=== PATIENT | female | born 1965 | race Two or more races ===

== ENCOUNTER 2017-09-18 00:10 | Emergency (ER) | payer OTHER ==
--- NOTE | 2017-09-18 00:36 | PDOC ---
History of Present Illness - General Chief Complaint: Lightheaded Stated Complaint: PAIN TO BOTTOM OF FEET X 2 WEEKS/DIZZY Time Seen by Provider: 09/18/17 00:15 - History of Present Illness Initial Comments: This 52-year-old woman with a history of depression but no other medical problems presents with 3 week history of bilateral foot pain and 1 day history of vertigo, worse with positioning of her head and nausea. Patient has had one previous episode of vertigo in the past which was milder than today's episode and resolved spontaneously. No history of headache/head trauma/difficulty speaking or weakness of face or extremities. Although patient has been nauseated, she has not vomited. She states that she feels a sensation of room spinning when she turns her head to the left. Patient states that her bilateral foot pain is located mainly in the soles of her feet and is worse when she awakens in the morning. No history of trauma to her feet and no change in her footwear recently. Past History - Past Medical History Allergies/Adverse Reactions: Allergies Allergy/AdvReac Type Severity Reaction Status Date / Time No Known Allergies Allergy Verified 09/18/17 00:12 Home Medications: Ambulatory Orders Meclizine HCl [Antivert -] 25 mg PO TID PRN #20 tablet 09/18/17 Paroxetine HCl [Paxil] 20 mg PO DAILY 09/18/17 Review of Systems - Review of Systems Able to Perform ROS?: Yes Comments:: 12 point review of systems is negative except for what is noted in the history of present illness *Physical Exam - Physical Exam Comments: GENERAL: Adult female, alert and oriented 3, no acute distress HEAD: Normal with no signs of trauma. EYES: PERRLA, EOMI, several extra beats of nystagmus on right lateral gaze; remainder of eye exam is normal ENT: Ears normal, nares patent, oropharynx clear without exudates. Moist mucous membranes. NECK: Normal range of motion, supple without lymphadenopathy, JVD, or masses. LUNGS: Breath sounds equal, clear to auscultation bilaterally. No wheezes, and no crackles. HEART:Regular rate and rhythm, normal S1 and S2 without murmur, rub or gallop. ABDOMEN:.normal bowel sounds No guarding,tenderness or rebound.No masses No distention. EXTREMITIES: Normal range of motion, no edema. No clubbing or cyanosis. No erythema, or tenderness. NEUROLOGICAL: Cranial nerves II through XII grossly intact. Normal speech. No focal neurological deficits. MUSCULOSKELETAL: Back non-tender to palpation, no CVA tenderness SKIN: Warm, Dry, normal turgor, no rashes or lesions noted. Medical Decision Making - Medical Decision Making Patient presents with a one-day history of positional vertigo with nausea (no vomiting). Symptoms worsen with movement of the head to the left. Patient has had previous episodes of positional vertigo but today's is most severe. She has no other neurologic symptoms. She has not seen a neurologist or had neurologic workup of her previous episodes of vertigo. Exam reveals no evidence of focal neurologic deficit; there is mild increase in nystagmus on right lateral gaze. The patient also presents with seemingly unrelated symptoms of bilateral foot pain, worse upon awakening in the morning. No history of foot pain or other podiatric symptoms in the past. No recent change in footwear or excessive walking/running/standing. Exam of lower extremities is normal with feet warm and dry with excellent capillary refill. Dorsalis pedis pulse is palpable in both feet and motor/sensory functioning is intact. Clinical presentation most consistent with vestibular neuritis/labyrinthitis. Since patient is not actively vomiting, meclizine 25 mg dose by mouth will be given. Patient's foot pain is most consistent with Plantar fasciitis. This was discussed with her and she will follow up with aircraft shipping checker. Patient's vertigo is significantly improved after meclizine. Nausea resolved and patient ambulating without difficulty. Prescription for meclizine 25 mg 3 times a day (#20) sent to her pharmacy. She should not work tomorrow, rest and drink plenty fluids. She should take meclizine 3 times a day for the next 2 days then as needed for vertigo. Patient should return to the emergency room if she has severe, persistent vertigo or experiences persistent vomiting she should follow-up with her general doctor within the next 5 days *DC/Admit/Observation/Transfer Diagnosis at time of Disposition: Plantar fasciitis, bilateral Labyrinthitis Qualifiers: Laterality: unspecified laterality Qualified Code(s): H83.09 - Labyrinthitis, unspecified ear - Discharge Dispostion Disposition: HOME Condition at time of disposition: Stable - Prescriptions Prescriptions: Meclizine HCl [Antivert -] 25 mg PO TID PRN #20 tablet PRN Reason: Vertigo - Referrals Referrals: Michelle Morales MD [Staff Physician] - 1 week - Patient Instructions Printed Discharge Instructions: Plantar Fasciitis, Labyrinthitis Additional Instructions: no work tomorrow meclizine 25 mg three times a day for the next 2 days, then as needed for vertigo Follow-up with your general doctor within 1 week Follow-up with aircraft shipping checker regarding bilateral foot pain Return to ER if you have severe dizziness/persistent nausea,vomiting - Post Discharge Activity Forms/Work/School Notes: Back to Work
[2017-09-18 00:44] VITALS: BP 134/76; PULSE 71; TEMP 98.6; BMI 24.9
[2017-09-18] MEDS ORDERED: MECLIZINE HCL 25 MG TABLET (FP) PO ONE (00:52)
[2017-09-18] MEDS ORDERED: MECLIZINE HCL 25 MG TABLET (FP) ONE (00:55)
== END 2017-09-18 01:38 | disposition home or self-care (01) ==
LOC: FER 00:10
DX: M72.2 Plantar fascial fibromatosis (principal); H83.09 Labyrinthitis, unspecified ear
CPT/HCPCS: 99281-25

== ENCOUNTER 2022-09-18 00:01 | Emergency (ER) | payer OTHER ==
[2022-09-18 00:19] VITALS: BP 113/71; PULSE 88; RESP 18; TEMP 98.2; BMI 27.0
[2022-09-18] MEDS ORDERED: ACETAMINOPHEN 1000 MG/100 ML BAG IVPB ONE (01:34)
[2022-09-18] MEDS ORDERED: LACTATED RINGERS SOLUTION 1000 ML INFUS.BAG IV ONE (01:34)
[2022-09-18] MEDS ORDERED: METOCLOPRAMIDE HCL INJECTION 10 MG/2 ML VIAL IVPB ONE (01:34)
[2022-09-18] MEDS ORDERED: METOCLOPRAMIDE HCL INJECTION 10 MG/2 ML VIAL ONE (01:39)
[2022-09-18] MEDS ORDERED: ACETAMINOPHEN INJECTION 100 ML IVPB ONE (01:39)
[2022-09-18 02:03] LABS: BASO % 0.7 % (0-2.0); EOS % 2.2 % (0-4.5); HEMATOCRIT 38.5 % (32.4-45.2); HEMOGLOBIN 13.3 GM/dL (10.7-15.3); LYMPH % 37.3 % (8-40); MCH 29.5 pg (25.7-33.7); MCHC 34.5 g/dl (32.0-36.0); MEAN CELL VOLUME 85.6 fl (80-96); MEAN PLT VOLUME 10.1 fl (7.5-11.1); NEUT % 53.8 % (42.8-82.8); PLATELET COUNT 154 10^3/uL (134-434); RDW 13.3 % (11.6-15.6)
[2022-09-18 02:09] LABS: INR 1.06 (0.83-1.09); PROTHROMBIN TIME (PATIENT) 12.3 SEC (9.7-13.0)
[2022-09-18 02:11] LABS: ACTIVATED PTT 30.9 SECONDS (25.2-36.5)
[2022-09-18 02:28] LABS: CHLORIDE 106 mmol/L (98-107); SODIUM 139 mmol/L (136-145)
[2022-09-18 02:30] LABS: ALBUMIN 3.8 g/dl (3.4-5.0); ANION GAP 4 MMOL/L (8-16); CALCIUM 9.1 mg/dL (8.5-10.1); CO2 29 mmol/L (21-32); GLUCOSE,RANDOM 100 mg/dL (74-106)
[2022-09-18 02:31] LABS: BLOOD UREA NITROGEN 19.5 mg/dL (7-18)
[2022-09-18 02:33] LABS: SGPT/ALT 29 U/L (13-61)
[2022-09-18 02:34] LABS: CREATININE 0.7 mg/dL (0.55-1.3); SGOT/AST 22 U/L (15-37)
[2022-09-18 02:35] LABS: BILIRUBIN,TOTAL 0.4 mg/dL (0.2-1)
[2022-09-18 02:36] LABS: ALK PHOS 77 U/L (45-117)
[2022-09-18 03:16] LABS: EPI CELLS 6 /uL (0-25.1); HYALINE CASTS 1 /uL (0-3.1); URINE APPEARANCE CLEAR; URINE BACTERIA 6 /uL (0-1359); URINE BILIRUBIN NEGATIVE (NEGATIVE); URINE COLOR YELLOW; URINE GLUCOSE (UA) NEGATIVE (NEGATIVE); URINE KETONE TRACE (NEGATIVE); URINE LEUK ESTERASE TRACE (NEGATIVE); URINE NITRITE NEGATIVE (NEGATIVE); URINE PROTEIN NEGATIVE (NEGATIVE); URINE RBC 9 /uL (0-23.9); URINE WBC 57 /uL (0-25.8)
== END 2022-09-18 03:36 | disposition home or self-care (01) ==
LOC: JER 00:01
PROC: 3E033NZ Introduction of Analgesics, Hypnotics, Sedatives into Peripheral Vein, Percutaneous Approach (ICD-10-PCS; principal; 2022-09-18)
PROC: 3E033GC Introduction of Other Therapeutic Substance into Peripheral Vein, Percutaneous Approach (ICD-10-PCS; 2022-09-18)
DX: R42 Dizziness and giddiness (principal); R11.2 Nausea with vomiting, unspecified; R10.9 Unspecified abdominal pain
CPT/HCPCS: 36415; 80053; 81003; 85025; 85610; 85651; 85730; 86140; 87086; 93005; 93010; 99284-25